=== PATIENT | female | born 1940 | race Caucasian/White ===

== ENCOUNTER 2017-12-01 11:06 | Emergency (ER) | payer MEDICARE, BC, OTHER ==
[~2017-12-01] VITALS: Ht 152.4 cm; Wt 50.5 kg
[2017-12-01 11:15] VITALS: BP 158/68; PULSE 58; RESP 16; TEMP 97.8; O2SAT 96
[2017-12-01] MEDS ORDERED: LOSA25TA PO (11:23)
[2017-12-01] MEDS ORDERED: PRED10 PO (11:36)
--- NOTE | 2017-12-01 11:41 | PD ---
HPI Chief Complaint: ENT Complaint Time Seen by Provider: 11:29 Travel History International Travel<30 days: No Contact w/Intl Traveler<30days: No Traveled to known affect area: No History of Present Illness HPI 77-year-old female presents emergency department for evaluation of bilateral ear pain that started 1-2 days ago. Patient says that a couple days ago she developed a sore throat which has since resolved but this migrated into her ears. Patient states that his "painful" and is unable to characterize further. She denies radiation of pain. Says she feels like she is talking through a "tunnel". Denies fever, chills, cough, congestion. Says that her was sick with a sore throat about a week ago and believes this may have come from him says she also feels as if she is tearing because of the ear pain. She has not followed up with her primary care physician. She has no other complaints today. PFSH Past Medical History Cardiovascular Problems: Yes (htn on med) Hypertension: Yes ?: Not Social History Alcohol Use: Yes Tobacco Use: No Substance Use: No Allergies-Medications (Allergen,Severity, Reaction): Coded Allergies: No Known Allergies (Unverified , 12/01/17) Reported Meds & Prescriptions Reported Meds & Active Scripts Active Prednisone 10 Mg Tab 10 Mg PO DAILY 7 Days Reported Losartan (Losartan Potassium) 25 Mg Tab Unknown Dose PO DAILY Review of Systems Except as stated in HPI: all other systems reviewed are Neg Physical Exam Narrative GENERAL: Well-developed well-nourished no apparent distress SKIN: Focused skin assessment warm/dry. HEAD: Atraumatic. Normocephalic. EYES: Pupils equal and round. No scleral icterus. No injection or drainage. ENT: No nasal bleeding or discharge. Mucous membranes pink and moist. EARS: Bilateral pinnae and external canals appear within normal limits. Bilateral tympanic membranes without erythema, dullness or perforation. Bilateral tympanic membranes with edema and bulging. Serous fluid. No clicks or pops of opening closing of the jaw. This does not reproduce her pain. NECK: Trachea midline. No JVD. No lymphadenopathy THROAT: No pharyngeal injection, exudates, or tonsillar hypertrophy. Airway is patent. CARDIOVASCULAR: Regular rate and rhythm. No murmur appreciated. RESPIRATORY: No accessory muscle use. Clear to auscultation. Breath sounds equal bilaterally. MUSCULOSKELETAL: No obvious deformities. No clubbing. No cyanosis. No edema. Data Data Last Documented VS Vital Signs Date Time Temp Pulse Resp B/P (MAP) Pulse Ox O2 Delivery O2 Flow Rate FiO2 12/01/17 11:15 97.8 58 16 158/68 (98) 96 Orders Orders Prednisone (Deltasone) (12/01/17 11:45) Ed Discharge Order (12/01/17 11:41) MDM Medical Decision Making Medical Screen Exam Complete: Yes Emergency Medical Condition: Yes Differential Diagnosis Otitis media, allergic rhinitis, allergic pharyngitis Narrative Course 77-year-old female presents emergency department for bilateral ear pain that started 2 days ago. Vital signs are stable. Physical exam findings most consistent with bilateral otitis media, serous type. No evidence of infectious process or the need for antibiotics based off of history. Patient received 20 mg prednisone emergency department today. Patient be discharged prednisone 10 mg daily for 7 days. Advised she should follow-up with primary care physician. Consider over-the- counter antihistamines to reduce the swelling and inflammation potentially caused by allergies. Diagnosis Primary Impression: Allergic otitis media Qualified Codes: H65.113 - Acute and subacute allergic otitis media (mucoid) ( sanguinous) (serous), bilateral Referrals: Primary Care Physician Additional Instructions: Consider using Zyrtec, Claritin, or Lisa to reduce possible allergy symptoms and to reduce fluid in her ears. Take prednisone as prescribed. Follow-up with primary care physician within 2-3 days. If your symptoms persist or worsen return to the emergency department. You received her first dose of prednisone today in the emergency department. You may start your next dose tomorrow. Scripts Prednisone (Prednisone) 10 Mg Tab 10 MG PO DAILY for 7 Days, #7 TAB 0 Refills Prov: Rita Christopher DO 12/01/17 Disposition: 01 DISCHARGE HOME Condition: Stable Fanny Boyd December 01, 2017 11:41
[2017-12-01] MEDS ORDERED: predniSONE 20 MG TAB PO ONE (11:45)
== END 2017-12-01 11:55 | disposition home or self-care (01) ==
LOC: PHEFT 11:06
DX: H65.93 Unspecified nonsuppurative otitis media, bilateral (principal); I10 Essential (primary) hypertension; Z79.899 Other long term (current) drug therapy
CPT/HCPCS: 99283; J7512